=== PATIENT | female | born 1965 | race Caucasian/White ===

== ENCOUNTER 2017-06-25 15:03 | Emergency (ER) | payer MEDICARE, MEDICAID ==
[~2017-06-25] VITALS: Ht 154.9 cm; Wt 68.0 kg
--- OUTSIDE RECORDS SUMMARY | 2017-06-25 15:11 | XMS REPORT ---
Author JONE Quintero Organization eClinical[employer] Address Unknown Phone Unavailable Care Team Providers Care Residential Child Care Counselor Name Role Phone JONE DELGADO CP Unavailable Allergies No Known Allergies Problems Problem Type Condition Code Onset Dates Condition Status Problem Depressed F32.9 Active Problem Psoriasis L40.9 Active Problem Routine gynecological examination Z01.419 Active Problem Post-menopausal Z78.0 Active Problem General medical exam Z00.00 Active Problem Sensation of feeling hot R68.89 Active Problem COPD (chronic obstructive pulmonary disease) J44.9 Active Problem Screening breast examination Z12.39 Active Problem Anxiety F41.9 Active Medications No Known Medications Results No Known Results Summary Purpose eClinicalWorks Submission
--- OUTSIDE RECORDS SUMMARY | 2017-06-25 15:11 | XMS REPORT ---
Author Author JONE DELGADO [facility] eClinicalWorks Address Unknown Phone Unavailable Care Team Providers Care Branch Billing Payroll Clerk Name Role Phone JONE DELGADO CP Unavailable Allergies, Adverse Reactions, Alerts Substance Reaction Event Type HydrOXYzine HCl "skin crawling" Drug Allergy Codeine Phosphate stomach upset Drug Allergy Problems Problem Type Condition Code Onset Dates Condition Status Problem Other and unspecified hyperlipidemia 272.4 Active Problem Postmenopausal bleeding 627.1 Active Problem Routine general medical examination at health care facility V70.0 Active Problem Unspecified menopausal and postmenopausal disorder 627.9 Active Assessment Bronchitis J40 Active Problem Acute bronchitis 466.0 Active Problem Contusion of left lower leg, initial encounter S80.12XA Active Problem Unspecified personality disorder 301.9 Active Problem Unspecified venereal disease 099.9 Active Problem Unspecified hypothyroidism 244.9 Active Problem Other and unspecified alcohol dependence, unspecified drunkenness 303.90 Active Problem Special screening examination, human papillomavirus [HPV] V73.81 Active Problem Unspecified breast screening V76.10 Active Assessment Postnasal discharge R09.82 Active Problem Screening for malignant neoplasm of the cervix V76.2 Active Problem Acute sinusitis, unspecified 461.9 Active Problem Other acne 706.1 Active Problem Other specified menopausal and postmenopausal disorder 627.8 Active Problem Lumbago 724.2 Active Problem Leukorrhea, not specified as infective 623.5 Active Problem Insomnia, unspecified 780.52 Active Medications Medication Code System Code Instructions Start Date End Date Status Dosage ProAir HFA [facility] [address]-42 108 (90 Base) MCG/ACT Inhalation every 4 hrs Sep 10, 2015 2 puffs as needed Doxycycline Hyclate [facility] [address]-82 100 MG Orally every 12 hrs Sep 10, 2015 Sep 20, 2015 1 capsule PredniSONE [facility] [address]-97 10 MG Orally Twice a day Sep 10, 2015Sep 1 tablet with food or milk Tessalbetty Perles [facility] [address]-58 100 MG Orally Three times a day Sep 10, 2015 1 capsule as needed Procedures Procedure Coding System Code Date [facility] VISIT ESTABLISHED PATIENT CPT-4 G0467 Sep 10, 2015 Office Visit, Est Pt., Level 3 CPT-4 26756 Sep 10, 2015 MEASURE BLOOD OXYGEN LEVEL CPT-4 84585 Sep 10, 2015 Vital Signs Date/Time: Sep 10, 2015 Temperature 96.8 F Weight 126.2 lbs Height 59 in Oximetry 97 % Blood Pressure Diastolic 80 mmHg Blood Pressure Systolic 122 mmHg Cardiac Monitoring Heart Rate 90 bpm BMI 25.49 Index Results No Known Results Summary Purpose eClinicalWorks Submission
--- OUTSIDE RECORDS SUMMARY | 2017-06-25 15:11 | XMS REPORT ---
Author JONE Quintero [facility] eClinicalWorks Address Unknown Phone Unavailable Care Team Providers Care Elastic Yarn Twister Name Role Phone JONE DELGADO Unavailable Allergies No Known Allergies Problems Problem Type Condition Code Onset Dates Condition Status Problem Psoriasis L40.9 Active Problem Depressed F32.9 Active Medications No Known Medications Results No Known Results Summary Purpose eClinicalWorks Submission
--- OUTSIDE RECORDS SUMMARY | 2017-06-25 15:11 | XMS REPORT ---
Author Author NISHA ISSA Organization eClinical[employer] Address Unknown Phone Unavailable Care Team Providers Care Jewelry Store Manager Name Role Phone NISHA ISSA CP Unavailable Allergies, Adverse Reactions, Alerts Substance Reaction Event Type HydrOXYzine HCl "skin crawling" Drug Allergy Codeine Phosphate stomach upset Drug Allergy Problems Problem Type Condition Code Onset Dates Condition Status Assessment General medical exam Z00.00 Active Problem Depressed F32.9 Active Problem Psoriasis L40.9 Active Problem Routine gynecological examination Z01.419 Active Problem Post-menopausal Z78.0 Active Problem General medical exam Z00.00 Active Problem Sensation of feeling hot R68.89 Active Problem COPD (chronic obstructive pulmonary disease) J44.9 Active Problem Screening breast examination Z12.39 Active Problem Anxiety F41.9 Active Assessment Screening breast examination Z12.39 Active Assessment Post-menopausal Z78.0 Active Assessment Routine gynecological examination Z01.419 Active Medications Medication Code System Code Instructions Start Date End Date Status Dosage Paroxetine HCl [facility] [address]-87 10 mg Orally Once a day May 21, 2016 1 tablet in the morning Procedures Procedure Coding System Code Date No Charge CPT-4 85466 May 21, 2016 [place]ACK[place] VAG, DNA, DIR PROBE CPT-4 05710 May 21, 2016 [facility] CPT-4 NOBLL May 21, 2016 Preventive Care Est Pt. Age 40-64 CPT-4 58309 May 21, 2016 SPECIMEN HANDLING CPT-4 96651 May 21, 2016 Vital Signs Date/Time: May 21, 2016 Cardiac Monitoring Heart Rate 92 bpm Weight 127.8 lbs Height 59 in BMI 25.81 Index Blood Pressure Diastolic 86 mmHg Blood Pressure Systolic 124 mmHg Results No Known Results Summary Purpose eClinicalWorks Submission
--- OUTSIDE RECORDS SUMMARY | 2017-06-25 15:11 | XMS REPORT ---
Author JONE Quintero [facility] eClinicalWorks Address Unknown Phone Unavailable Care Team Providers Care Compressor Stations Superintendent Name Role Phone JONE DELGADO Unavailable Allergies No Known Allergies Problems Problem Type Condition Code Onset Dates Condition Status Problem Psoriasis L40.9 Active Problem Depressed F32.9 Active Medications Medication Code System Code Instructions Start Date End Date Status Dosage Clobetasol Propionate [facility] [address]-32 0.05 % Externally Twice a day Sep 19, 2015 1 application to affected area Results No Known Results Summary Purpose eClinicalWorks Submission
--- OUTSIDE RECORDS SUMMARY | 2017-06-25 15:11 | XMS REPORT ---
Author JONE Quintero [facility] eClinicalWorks Address Unknown Phone Unavailable Care Team Providers Care Regional Refrigerated Cdl Truck Driver Name Role Phone JONE DELGADO Unavailable Allergies No Known Allergies Problems Problem Type Condition Code Onset Dates Condition Status Problem Psoriasis L40.9 Active Problem Depressed F32.9 Active Medications Medication Code System Code Instructions Start Date End Date Status Dosage Clobetasol Propionate [facility] [address]-79 0.05 % Externally Twice a day Sep 19, 2015 1 application to affected area Results No Known Results Summary Purpose eClinicalWorks Submission
--- OUTSIDE RECORDS SUMMARY | 2017-06-25 15:11 | XMS REPORT ---
Author JONE Quintero [facility] eClinicalWorks Address Unknown Phone Unavailable Care Team Providers Care Access Specialist Name Role Phone JONE DELGADO Unavailable Allergies No Known Allergies Problems Problem Type Condition Code Onset Dates Condition Status Problem Psoriasis L40.9 Active Problem Depressed F32.9 Active Medications No Known Medications Results No Known Results Summary Purpose eClinicalWorks Submission
--- OUTSIDE RECORDS SUMMARY | 2017-06-25 15:12 | XMS REPORT ---
Author JONE Quintero Organization e[employer] Address Unknown Phone Unavailable Care Team Providers Care Senior Network Administrator Name Role Phone JONE DELGADO CP Unavailable Allergies, Adverse Reactions, Alerts Substance Reaction Event Type HydrOXYzine HCl "skin crawling" Drug Allergy Codeine Phosphate stomach upset Drug Allergy Problems Problem Type Condition Code Onset Dates Condition Status Problem Psoriasis L40.9 Active Assessment Depressed F32.9 Active Problem Depressed F32.9 Active Assessment Psoriasis L40.9 Active Medications Medication Code System Code Instructions Start Date End Date Status Dosage Clobetasol Propionate [facility] [address]-54 0.05 % Externally Twice a day Sep 19, 2015 1 application to affected area ProAir HFA [facility] [address]-51 108 (90 Base) MCG/ACT Inhalation every 4 hrs Sep 10, 2015 2 puffs as needed Procedures Procedure Coding System Code Date Office Visit, Est Pt., Level 4 CPT-4 25715 Sep 19, 2015 ON LICENSE OF [facility] VISIT ESTABLISHED PATIENT CPT-4 G0467 Sep 19, 2015 Vital Signs Date/Time: Sep 19, 2015 Temperature 97.2 F Weight 123.9 lbs Height 59 in BMI 25.02 Index Blood Pressure Diastolic 88 mmHg Blood Pressure Systolic 124 mmHg Cardiac Monitoring Heart Rate 92 bpm Results No Known Results Summary Purpose eClinicalWorks Submission
--- OUTSIDE RECORDS SUMMARY | 2017-06-25 15:12 | XMS REPORT ---
Author JONE Quintero [facility] eClinicalWorks Address Unknown Phone Unavailable Care Team Providers Care Potato Loader Name Role Phone JONE DELGADO CP Unavailable [...] Unspecified menopausal and postmenopausal disorder 627.9 Active Problem Acute bronchitis 466.0 Active Problem Contusion of left lower leg, initial encounter S80.12XA Active Problem Unspecified personality disorder 301.9 Active Problem Unspecified venereal disease 099.9 Active Problem Unspecified hypothyroidism 244.9 Active Problem Other and unspecified alcohol dependence, unspecified drunkenness 303.90 Active Problem Special screening examination, human papillomavirus [HPV] V73.81 Active Problem Unspecified breast screening V76.10 Active Assessment Contusion of left lower leg, initial encounter S80.12XA Active Problem Screening for malignant neoplasm of the cervix V76.2 Active Problem Acute sinusitis, unspecified 461.9 Active Problem Other acne 706.1 Active Problem Other specified menopausal and postmenopausal disorder 627.8 Active Problem Lumbago 724.2 Active Problem Leukorrhea, not specified as infective 623.5 Active Problem Insomnia, unspecified 780.52 Active Medications Medication Code System Code Instructions Start Date End Date Status Dosage Naprosyn [facility] [address]-52 500 MG Orally every 12 hrs Aug 21, 2015Aug 1 tablet as needed Procedures Procedure Coding System Code Date Office Visit, Est Pt., Level 3 CPT-4 76182 Aug 21, 2015 [facility] VISIT ESTABLISHED PATIENT CPT-4 G0467 Aug 21, 2015 Vital Signs Date/Time: Aug 21, 2015 Temperature 97.6 F Weight 126.4 lbs Height 59 in BMI 25.53 Index Blood Pressure Diastolic 76 mmHg Blood Pressure Systolic 120 mmHg Cardiac Monitoring Heart Rate 80 bpm Results No Known Results Summary Purpose eClinicalWorks Submission
--- OUTSIDE RECORDS SUMMARY | 2017-06-25 15:12 | XMS REPORT ---
Author Author BOGDAN PHILIPPE [facility] eClinicalWorks Address Unknown Phone Unavailable Care Team Providers Care Division Engineer Name Role Phone BOGDAN PHILIPPE CP Unavailable Allergies, Adverse Reactions, Alerts Substance Reaction Event Type HydrOXYzine HCl "skin crawling" Drug Allergy Codeine Phosphate stomach upset Drug Allergy Problems Problem Type Condition Code Onset Dates Condition Status Assessment COPD (chronic obstructive pulmonary disease) J44.9 Active Problem Depressed F32.9 Active Problem Psoriasis L40.9 Active Assessment Upper respiratory tract infection, unspecified type J06.9 Active Problem Routine gynecological examination Z01.419 Active Problem Post-menopausal Z78.0 Active Problem General medical exam Z00.00 Active Problem Sensation of feeling hot R68.89 Active Problem COPD (chronic obstructive pulmonary disease) J44.9 Active Problem Screening breast examination Z12.39 Active Problem Anxiety F41.9 Active Medications Medication Code System Code Instructions Start Date End Date Status Dosage PredniSONE [facility] [address]-82 50 mg Orally Once a day 2016 Aug 12, [address] [facility] [address]-92 108 (90 Base) MCG/ACT Inhalation every 4 hrs February 18, 2016 2 puffs as needed Procedures Procedure Coding System Code Date Office Visit, Est Pt., Level 2 CPT-4 56597 2016 [facility] VISIT ESTABLISHED PATIENT CPT-4 G0467 2016 Vital Signs Date/Time: 2016 Cardiac Monitoring Heart Rate 96 bpm Weight 130.5 lbs Height 59 in BMI 26.35 Index Blood Pressure Diastolic 90 mmHg Blood Pressure Systolic 120 mmHg Results No Known Results Summary Purpose eClinicalWorks Submission
[2017-06-25] MEDS ORDERED: HYDR-757 PO (15:39)
--- NOTE | 2017-06-25 15:39 | ED Upper Extremity ---
General Chief Complaint: Upper Extremity Stated Complaint: FALL/WRIST INJ Nursing Triage Note: Pt slipped on a wet floor and fell at [place]. C/O left wrist pain. Nursing Sepsis Screen: No Definite Risk Source: patient Exam Limitations: no limitations History of Present Illness Time seen by provider: 15:37 Initial Comments To ER with reports of a fall and left wrist pain. She arrives per EMS. Reportedly she was at [place] when she slipped in some water and fell landing on an extended left hand. Modifying Factors: Worse With Movement Allergies and Home Medications Home Medications Hydrocodone/Acetaminophen 1 Each Tablet, 1 EACH PO Q4H PRN for PAIN-MODERATE, # 30 Prescribed by: ROXANNA CONWAY on 06/25/17 1539 Constitutional: see HPI EENTM: see HPI Respiratory: no symptoms reported Cardiovascular: no symptoms reported Genitourinary: no symptoms reported Musculoskeletal: see HPI Skin: no symptoms reported Psychiatric/Neurological: No Symptoms Reported Past Dfwpegq-Bbovej-Zxwtsi Hx Patient Social History Recent Foreign Travel: No Contact w/Someone Who Travel: No Recent Infectious Disease Expo: No Physical Exam Vital Signs Vital Sign - Last 12Hours 06/25/17 15:05 Temp 97.5 Pulse 70 B/P (MAP) 122/59 Pulse Ox 98 O2 Delivery Room Air Capillary Refill : Less Than 3 Seconds General Appearance: WD/WN, no apparent distress HEENT: PERRL/EOMI, normal ENT inspection Neck: non-tender, full range of motion Respiratory: normal breath sounds, no respiratory distress, no accessory muscle use Gastrointestinal: normal bowel sounds, non tender Elbow/Forearm: normal inspection, non-tender Wrist: Yes deformity, Yes limited ROM, Yes pain, Yes soft tissue tenderness, Yes swelling Hand: normal inspection, non-tender, Left Neurologic/Psychiatric: alert, normal mood/affect, oriented x 3 Skin: normal color, warm/dry Progress/Results/Core Measures Results/Orders My Orders Orders - ROXANNA CONWAY APRN Forearm, Left, 2 Views (06/25/17 15:10) Vital Signs/I&O Vital Sign - Last 12Hours 06/25/17 15:05 Temp 97.5 Pulse 70 B/P (MAP) 122/59 Pulse Ox 98 O2 Delivery Room Air Blood Pressure Mean: 80 Diagnostic Imaging Diagonstic Imaging: Xray Plain Films/CT/US/NM/MRI: chest Comments NAME: MILLIE OJEDA [facility] REC#: [id number] PT STATUS: REG ER : 1965 PHYSICIAN: ROXANNA CONWAY APRN ADMIT DATE: 06/25/17/ER Draft Date of Exam:06/25/17 FOREARM, LEFT, 2 VIEWS INDICATION: Arm pain. EXAMINATION: Left forearm at 3:46 p.m. AP and lateral views were obtained. FINDINGS: There is a slightly impacted, slightly comminuted essentially nondisplaced fracture of the distal radial metaphysis. There is also a small avulsion fracture of the ulnar styloid. No other fracture or acute bony abnormality is identified. The soft tissues are unremarkable. IMPRESSION: 1. There are fractures of the distal radial metaphysis and the ulnar styloid. There is no acute bony abnormality noted otherwise. 2. These results will be called to Roxanna Conway APRN. Dictated on workstation # [id number] Dict: 06/25/17 1533 Trans: 06/25/17 1546 [facility] [id number] Interpreted by: SILVINO SALMON MD Electronically signed by: Departure Communication (Admissions) Progress Notes Patient is neurovascularly intact distal to the fracture site. She has some tingling of the fingertips but states that she gets this about every night anyway significant carpal tunnel syndrome. There is capillary refill less than 3 seconds to the fingertips. I placed her in a sugar tong style splint using 4 inch Ortho-Glass in a sling. I provided her with orthopedic surgeons to follow up with. 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 Impression Impression: Primary Impression: Closed fracture distal radius and ulna Disposition: 01 HOME, SELF-CARE Condition: Stable Departure-Patient Inst. Decision time for Depature: 15:38 Referrals: MEDHAT PERRY MD, JONATHAN MD MCNEMAR,RAFAEL PARIS MD, PAUL W DO ZAFUTA, MICHAEL P MD Patient Instructions: Forearm Fracture (DC) Add. Discharge Instructions: 1. Return to ER for any concerns 2. Follow-up with your doctor next week 3. All discharge instructions reviewed with patient and/or family. Voiced understanding. Scripts Hydrocodone/Acetaminophen ([place] 5-325 Tablet) 1 Each Tablet 1 EACH PO Q4H Y for PAIN-MODERATE, #30 TAB Prov: ROXANNA CONWAY APRN 06/25/17 Work/School Note: Work Release Form Date Seen in the Emergency Department: Jun 25, 2017 Return to Work: Jun 26, 2017 Other Restrictions Listed Below: No use of left hand, must remain in sling at all times Copy Copies To 1: AMIE LI MD, PETER J APRN Jun 25, 2017 15:39
--- NOTE | 2017-06-25 15:46 | Diagnostic Imaging Report ---
INDICATION: Arm pain. EXAMINATION: Left forearm at 3:46 p.m. AP and lateral views were obtained. FINDINGS: There is a slightly impacted, slightly comminuted essentially nondisplaced fracture of the distal radial metaphysis. There is also a small avulsion fracture of the ulnar styloid. No other fracture or acute bony abnormality is identified. The soft tissues are unremarkable. IMPRESSION: 1. There are fractures of the distal radial metaphysis and the ulnar styloid. There is no acute bony abnormality noted otherwise. 2. These results were called to Almas Conway APRN. Dictated by: Dictated on workstation # [id number]
[2017-06-25] MEDS ORDERED: KETOROLAC 30 MG/ML VIAL IVP ONE (16:30)
[2017-06-25] MEDS ORDERED: fentaNYL INJECTION 100 MCG/2 ML AMP IVP ONE (16:30)
[2017-06-25 16:48] VITALS: BP 118/60
== END 2017-06-25 16:48 | disposition home or self-care (01) ==
LOC: EDUNIT# 15:03 → ER 15:04
DX: S52.502A Unspecified fracture of the lower end of left radius, initial encounter for closed fracture (principal); S52.612A Displaced fracture of left ulna styloid process, initial encounter for closed fracture; W01.0XXA Fall on same level from slipping, tripping and stumbling without subsequent striking against object, initial encounter
CPT/HCPCS: 29105; 73090; 96374; 96375

== ENCOUNTER 2023-04-03 11:31 | Emergency (ER) | payer MEDICARE, MEDICAID ==
[~2023-04-03] VITALS: Ht 147 cm; Wt 72.0 kg
[~2023-04-03 11:31] MED LIST: HYDR-4226 PO
[2023-04-03 11:38] VITALS: BP 179/113
[2023-04-03] MEDS ORDERED: HYDROcodone/APAP 7.5 MG/325 MG (LORTAB, LORCET PLUS) TABLET PO STA (12:03)
--- NOTE | 2023-04-03 12:13 | ED Back Pain ---
General Chief Complaint: Back Problems Stated Complaint: LOWER BACK PAIN Nursing Triage Note: PT AMB TO TRIAGE CO OF LOW BACK PAIN STARTED APPROX 2 WEEKS AGO WHILE MOVING. HAS BEEN SEEN BY [facility] X3. PT IS IN LOWER BACK AND GOES DOWN L TO KNEE. RATES PAIN10/10. PT IS CURRENTLY TAKING STEROIDS DESCRIBED Source of Information: Patient Exam Limitations: No Limitations History of Present Illness Date Seen by Provider: Apr 03, 2023 Time Seen by Provider: 12:10 Initial Comments Patient is a 57-year-old female presents ED with lower back pain. Back pain started 2 weeks ago. Few days prior she was moving lifting heavy objects. She believes she may have overdone it. Started having a dull constant pain that progressed to got worse over the past 2 weeks. Sharp shooting pain that radiates down into the left foot. She denies of any bowel or urine incontinence or saddle paresthesia. Has been taken ibuprofen. She has seen her primary care physician at [facility] 3 different times for this pain. She has received a steroid injection without much improvement. She states she had a CT scan of her lower back which noted bulging disc. Patient denies of any dysuria, hematuria, urine incontinence, abdominal pain, fever, chills, drug use. Mild to moderate distress on arrival Allergies and Home Medications Allergies Coded Allergies: No Known Drug Allergies (Unverified , 06/25/17) Patient Home Medication List Home Medication List Reviewed: Yes Hydrocodone/Acetaminophen (Hydrocodone/Acetaminophen 5 MG/325 MG TAB) 1 Each Tablet, 1 EACH PO Q4H PRN for PAIN-MODERATE Prescribed by: ROXANNA GRIFFITH on 06/25/17 1539 Hydrocodone/Acetaminophen (Hydrocodone-Acetamin 5-325 mg) 5 Mg-325 Mg Tablet, 1 TAB PO Q4H PRN for PAIN-MODERATE (5-7) Prescribed by: CARMENCITA NASH on 04/03/23 1323 Review of Systems Constitutional: No chills, No diaphoresis, No malaise, No weakness EENTM: No ear pain, No blurred vision, No double vision, No mouth pain, No mouth swelling Respiratory: No cough, No dyspnea on exertion Cardiovascular: No chest pain Gastrointestinal: No abdominal pain, No diarrhea, No nausea, No vomiting Genitourinary: No decreased output, No discharge Musculoskeletal: back pain; No joint pain; muscle pain; No muscle stiffness Skin: No change in color, No change in hair/nails All Other Systems Reviewed Negative Unless Noted: Yes Past Zkeohxy-Erdcbp-Webrai Hx Patient Social History Tobacco Use?: Yes Tobacco type used: Cigarettes Smoking Status: Current Everyday Smoker Substance type: Marijuana Substance frequency: Daily Alcohol Use?: No Pt feels they are or have been: No Past Medical History Surgery/Hospitalization HX: HTN,, Surgeries: No Respiratory: No Cardiac: No Neurological: No Genitourinary: No Gastrointestinal: No Musculoskeletal: No Endocrine: No HEENT: No Cancer: No Psychosocial: No Integumentary: No Blood Disorders: No Physical Exam Vital Signs Vital Signs - First Documented 04/03/23 11:38 Temp 36.5 Pulse 103 Resp 18 B/P (MAP) 179/113 (135) Capillary Refill : Less Than 3 Seconds Height, Weight, BMI Height: 5'1.00" Weight: 150lbs. oz. 68.065368fq; 33.00 BMI Method:Stated General Appearance: No Apparent Distress, WD/WN HEENT: PERRL/EOMI, TMs Normal, Normal ENT Inspection, Pharynx Normal Neck: Full Range of Motion, Normal Inspection, Non Tender, Supple Cardiovascular: Regular Rate, Rhythm, No Edema, No Gallop, No JVD Respiratory: Chest Non Tender, Lungs Clear, Normal Breath Sounds, No Accessory Muscle Use, No Respiratory Distress Gastrointestinal: Normal Bowel Sounds, No Organomegaly, No Pulsatile Mass, Non Tender Back: No CVA Tenderness, Vertebral Tenderness (Lumbar midline tenderness. Pain with flexion. Positive straight leg raise left leg) Extremity: Normal Capillary Refill, Normal Inspection, Normal Range of Motion, Non Tender Neurologic/Psychiatric: Alert, Oriented x3, No Motor/Sensory Deficits, Normal Mood/Affect, electrical technician II-XII Norm as Tested Skin: Normal Color, Warm/Dry Progress/Results/Core Measures Results/Orders Lab Results Laboratory Tests Test 04/03/23 12:59 04/03/23 13:11 Range/Units Urine Color ORANGE Urine Clarity CLEAR Urine pH 5.5 5-9 Urine Specific [place] >=1.030 1.016-1.022 Urine Protein 1+ H NEGATIVE Urine Glucose (UA) NEGATIVE NEGATIVE Urine Ketones NEGATIVE NEGATIVE Urine Nitrite NEGATIVE NEGATIVE Urine Bilirubin 1+ H NEGATIVE Urine Urobilinogen 1.0 < = 1.0 MG/DL Urine Leukocyte Esterase NEGATIVE NEGATIVE Urine RBC (Auto) NEGATIVE NEGATIVE Urine RBC NONE /HPF Urine WBC 2-5 /HPF Urine Squamous Epithelial Cells 10-25 H /HPF Urine Crystals NONE /LPF Urine Bacteria MODERATE H /HPF Urine Casts NONE /LPF Urine Mucus MODERATE H /LPF Urine Culture Indicated YES White Blood Count 11.7 H 4.3-11.0 10^3/uL Red Blood Count 4.78 3.80-5.11 10^6/uL Hemoglobin 14.4 11.5-16.0 g/dL Hematocrit 43 35-52 % Mean Corpuscular Volume 89 80-99 fL Mean Corpuscular Hemoglobin 30 25-34 pg Mean Corpuscular Hemoglobin Concent 34 32-36 g/dL Red Cell Distribution Width 12.5 10.0-14.5 % Platelet Count 389 130-400 10^3/uL Mean Platelet Volume 9.4 9.0-12.2 fL Immature Granulocyte % (Auto) 1 % Neutrophils (%) (Auto) 66 42-75 % Lymphocytes (%) (Auto) 25 12-44 % Monocytes (%) (Auto) 8 0-12 % Eosinophils (%) (Auto) 1 0-10 % Basophils (%) (Auto) 0 0-10 % Neutrophils # (Auto) 7.7 1.8-7.8 10^3/uL Lymphocytes # (Auto) 2.9 1.0-4.0 10^3/uL Monocytes # (Auto) 1.0 0.0-1.0 10^3/uL Eosinophils # (Auto) 0.1 0.0-0.3 10^3/uL Basophils # (Auto) 0.0 0.0-0.1 10^3/uL Immature Granulocyte # (Auto) 0.1 0.0-0.1 10^3/uL Sodium Level 140 135-145 MMOL/L Potassium Level 3.4 L 3.6-5.0 MMOL/L Chloride Level 105 98-107 MMOL/L Carbon Dioxide Level 24 21-32 MMOL/L Anion Gap 11 5-14 MMOL/L Blood Urea Nitrogen 17 7-18 MG/DL Creatinine 0.87 0.60-1.30 MG/DL Estimat Glomerular Filtration Rate 79 BUN/Creatinine Ratio 20 Glucose Level 103 70-105 MG/DL Calcium Level 9.1 8.5-10.1 MG/DL Corrected Calcium 9.0 8.5-10.1 MG/DL Total Bilirubin 0.3 0.1-1.0 MG/DL Aspartate Amino Transf (AST/SGOT) 12 5-34 U/L Alanine Aminotransferase (ALT/SGPT) 22 0-55 U/L Alkaline Phosphatase 84 40-136 U/L Total Protein 7.0 6.4-8.2 GM/DL Albumin 4.1 3.2-4.5 GM/DL My Orders Orders - LINDY JAUREGUI Ua Culture If Indicated (04/03/23 11:39) Ketorolac Injection (Toradol Injection) (04/03/23 12:15) Orphenadrine Inj (Ed Only) (Norflex Inje (04/03/23 12:15) Hydrocodone/Apap 7.5/325 Tab (Lortab 7. (04/03/23 12:03) Cbc With Automated Diff (04/03/23 13:03) Comprehensive Metabolic Panel (04/03/23 13:03) Urine Culture (04/03/23 12:59) Medications Given in ED Current Medications Medications Dose Ordered Sig/Vishal Route Start Time Stop Time Status Last Admin Dose Admin Ketorolac Tromethamine 30 mg ONCE ONCE IM 04/03/23 12:15 04/03/23 12:16 DC 04/03/23 12:11 30 MG Orphenadrine Citrate 60 mg ONCE ONCE IM 04/03/23 12:15 04/03/23 12:16 DC 04/03/23 12:11 60 MG Vital Signs/I&O 04/03/23 11:38 Temp 36.5 Pulse 103 Resp 18 B/P (MAP) 179/113 (135) Blood Pressure Mean: 135 Departure Communication (PCP) To denies of anyReviewed previous ER visits, H&P, lab testing. She states she has been seen 3 times over the past 2 weeks secondary to this low back injury and pain. Was prescribed anti-inflammatories, steroids without much improvement. Or trauma. No fever, drug use. She states she had a CT scan the lumbar spine which showed 5 bulging disc. She has no bowel or urine incontinence or saddle paresthesia. No lower extremity numbness weakness. No neurological red flag findings. She does have some left flank tenderness. Discussed urinalysis, CBC, CMP and KUB. CBC, CMP grossly unremarkable with a white blood count 11.7. Urinalysis was negative for infection or hematuria. She did receive Toradol, Norflex and a dose of hydrocodone. No neurological deficits requiring emergent MRI. I am concerned due to the continued pain. She would likely benefit with a MRI at some point for further evaluation. Recommend formal physical therapy. Recommend stretching. Will discharge with a few days worth of pain medication. Continue with anti-inflammatories. Patient was eager to leave was not able to get all of her lab work before discharge. Return precaution were discussed with patient. Patient Was not able to to get a KUB as patient left before x-ray office equipment technician showed up. Ruling out nephrolithiasis. Unlikely with negative urinalysis. May warrant further evaluation if continued pain Impression Primary Impression: Back pain Disposition: 01 HOME, SELF-CARE Condition: Stable Departure-Patient Inst. Decision time for Depature: 13:22 Referrals: [facility] (PCP/Family) Primary Care Physician Patient Instructions: Low Back Pain (DC) Add. Discharge Instructions: Commend follow-up with your PCP for further evaluation. Need for formal physical therapy, further evaluation MRI. All discharge instructions reviewed with patient and/or family. Voiced understanding. Scripts Hydrocodone/Acetaminophen (Hydrocodone-Acetamin 5-325 mg) 5 Mg-325 Mg Tablet 1 TAB PO Q4H PRN for PAIN-MODERATE (5-7), #8 TAB Prov: LINDY JAUREGUI 04/03/23 LINDY JAUREGUI Apr 03, 2023 12:13
[2023-04-03] MEDS ORDERED: ORPHENADRINE 60 MG/2 ML (NORFLEX) AMP (ED ONLY) IM ONE (12:15)
[2023-04-03] MEDS ORDERED: KETOROLAC 30 MG/ML VIAL IM ONE (12:15)
[2023-04-03 13:04] LABS: CLARITY,URINE CLEAR; COLOR,URINE ORANGE; GLUCOSE, URINE (UA) NEGATIVE (NEGATIVE); KETONES,URINE NEGATIVE (NEGATIVE); LEUKOCYTE ESTERASE ,URINE NEGATIVE (NEGATIVE); NITRITE,URINE NEGATIVE (NEGATIVE); PH,URINE 5.5 (5-9); PROTEIN,URINE 1+ (NEGATIVE)
[2023-04-03 13:16] LABS: BACTERIA,URINE MODERATE /HPF; BILIRUBIN,URINE 1+ (NEGATIVE)
[2023-04-03 13:20] LABS: BASOPHILS % (AUTO) 0 % (0-10); EOSINOPHILS # (AUTO) 0.1 10^3/uL (0.0-0.3); EOSINOPHILS % (AUTO) 1 % (0-10); HEMATOCRIT 43 % (35-52); HEMOGLOBIN 14.4 g/dL (11.5-16.0); LYMPHOCYTES # (AUTO) 2.9 10^3/uL (1.0-4.0); LYMPHOCYTES % (AUTO) 25 % (12-44); MEAN CORPUSCULAR HEMOGLOBIN 30 pg (25-34); MEAN CORPUSCULAR HGB CONC 34 g/dL (32-36); MEAN CORPUSCULAR VOLUME 89 fL (80-99); MEAN PLATELET VOLUME 9.4 fL (9.0-12.2); MONOCYTES % (AUTO) 8 % (0-12); NEUTROPHILS # (AUTO) 7.7 10^3/uL (1.8-7.8); NEUTROPHILS % (AUTO) 66 % (42-75); PLATELET COUNT 389 10^3/uL (130-400); WHITE BLOOD COUNT 11.7 10^3/uL (4.3-11.0)
[2023-04-03] MEDS ORDERED: ACHD5005 PO (13:23)
[2023-04-03 13:34] LABS: ALBUMIN 4.1 GM/DL (3.2-4.5); POTASSIUM 3.4 MMOL/L (3.6-5.0)
[2023-04-03 13:35] LABS: CALCIUM 9.1 MG/DL (8.5-10.1)
[2023-04-03 13:38] LABS: BILIRUBIN,TOTAL 0.3 MG/DL (0.1-1.0)
[2023-04-03 13:40] LABS: CREATININE SERUM 0.87 MG/DL (0.60-1.30)
== END 2023-04-03 13:30 | disposition left against medical advice (07) ==
LOC: EDUNIT# 11:31 → ER 11:34
DX: M51.36 Other intervertebral disc degeneration, lumbar region (principal); R10.9 Unspecified abdominal pain; F17.210 Nicotine dependence, cigarettes, uncomplicated; Z79.52 Long term (current) use of systemic steroids; X50.0XXA Overexertion from strenuous movement or load, initial encounter
CPT/HCPCS: 36415; 80053; 81000; 85025; 87088; 99284